=== PATIENT | female | born 1935 | race Caucasian/White ===

== ENCOUNTER 2018-03-09 13:46 | Day surgery (SDC) | payer MEDICARE, BC ==
[2018-03-04 12:34] LABS: ALBUMIN 3.4 G/DL (3.4-5.0); ANION GAP 9 (8-16); BASOPHILS # (AUTO) 0.1 X10'3 (0-0.2); BASOPHILS % (AUTO) 0.8 % (0-1); BLOOD UREA NITROGEN 21 MG/DL (7-18); BUN/CREATININE RATIO 16.4 (6.6-38.0); CALCIUM 8.8 MG/DL (8.5-10.1); CHLORIDE 105 MMOL/L (99-107); CREATININE 1.28 MG/DL (0.40-0.90); EOSINOPHILS # (AUTO) 0.1 X10'3 (0-0.9); GLUCOSE 126 MG/DL (70-104); HEMATOCRIT 45.7 % (35.0-45.0); HEMOGLOBIN 14.7 g/dl (12.0-16.0); LYMPHOCYTES % (AUTO) 15.8 % (21-51); MEAN CORPUSCULAR HEMOGLOBIN 30.8 PG (27.0-31.0); MEAN CORPUSCULAR HGB CONC 32.1 % (33.0-36.5); MEAN CORPUSCULAR VOLUME 95.9 FL (78-98); MEAN PLATELET VOLUME 9.8 FL (7.4-10.4); MONOCYTES # (AUTO) 0.6 X10'3 (0-0.9); MONOCYTES % (AUTO) 8.7 % (2-12); NEUTROPHILS # (AUTO) 4.7 X10'3 (1.8-7.7); NEUTROPHILS % (AUTO) 72.7 % (42-75); PLATELET COUNT 220 X10'3 (140-440); POTASSIUM 3.6 MMOL/L (3.5-5.1); RED BLOOD COUNT 4.76 X10'6 (4.20-5.60); RED CELL DISTRIBUTION WIDTH 13.8 % (11.5-14.5); SODIUM 142 MMOL/L (135-145); TOTAL CARBON DIOXIDE 28.4 MMOL/L (24-32); WHITE BLOOD COUNT 6.5 X10'3 (4.5-11.0); eGFR 40 ML/MIN
[2018-03-04 12:42] LABS: INR 2.9 INR; PARTIAL THROMBOPLASTIN TIME 40 SECONDS (22-32); PROTHROMBIN TIME 27.4 SECONDS (9.0-12.0)
[~2018-03-09] VITALS: Ht 165.1 cm; Wt 69.0 kg
[2018-03-09] MEDS ORDERED: fentaNYL/PF 50MCG/1 ML 2ML syringe IV ONE (14:20)
[2018-03-09] MEDS ORDERED: MIDAZolam 1mg/ml 10ml vial IV ONE (14:20)
[2018-03-09] MEDS ORDERED: normal saline 1000ml 1,000 ML IV PRN (14:20)
--- NOTE | 2018-03-09 15:35 | NUR ---
Pt connected to monitor , presents in normal sinus, solids control technician coming to do 12 lead. sent over to Dr Levine office results. Dr Falk states to D/C pt home. Addendum: 03/09/18 at 1601 by Cris Yang RN Amended: Links added.
== END 2018-03-09 15:20 | disposition home or self-care (01) ==
LOC: SSTAY O 13:46
PROVIDERS: ATTEND Internal Medicine Interventional Cardiology
DX: I48.1 Persistent atrial fibrillation (principal); Z53.8 Procedure and treatment not carried out for other reasons; I45.81 Long QT syndrome; I10 Essential (primary) hypertension; I35.0 Nonrheumatic aortic (valve) stenosis; E78.5 Hyperlipidemia, unspecified; Z87.891 Personal history of nicotine dependence; Z79.01 Long term (current) use of anticoagulants; Z79.899 Other long term (current) drug therapy
CPT/HCPCS: 36415; 80048; 85025; 85610; 85730; 93005